=== PATIENT | male | born 1935 | race Caucasian/White ===

== ENCOUNTER 2017-12-11 12:21 | Inpatient (IN) | payer OTHER ==
[~2017-12-11 12:21] MED LIST: DOPamine-D5W 1.6 MG/ML 250 ML; HEPARIN 5,000 UNIT/0.5 ML VIAL
[2017-12-11 12:34] LABS: ADD MAN DIFF? NO
[2017-12-11 12:40] LABS: ABNORMAL IP MESSAGE 1; BASOPHIL # 0.1 10^3/ul (0.0-0.1); BASOPHILS % 0.3 % (0.0-2.0); HEMATOCRIT 45.5 % (42.0-52.0); HEMOGLOBIN 15.5 g/dl (14.0-18.0); LYMPHOCYTES # 0.6 10^3/ul (0.8-2.9); LYMPHOCYTES % 2.4 % (15.0-51.0); MEAN CORPUSCULAR HEMOGLOBIN 33.3 pg (29.0-33.0); MEAN CORPUSCULAR HGB CONC 34.1 g/dl (32.0-37.0); MEAN CORPUSCULAR VOLUME 97.8 fl (82.0-101.0); MONOCYTE # 2.1 10^3/ul (0.3-0.9); NEUTROPHIL # 20.9 10^3/ul (1.6-7.5); NEUTROPHILS % 87.5 % (39.0-77.0); PLATELET COUNT 125 10^3/UL (140-415); POSITIVE DIFF @See below; RED BLOOD COUNT 4.65 10^6/ul (4.70-6.10); RED CELL DISTRIBUTION WIDTH 12.5 % (11.5-14.5)
[2017-12-11 12:40] LABS: WHITE BLOOD COUNT 23.8 10^3/ul (4.8-10.8)
[2017-12-11] MEDS ORDERED: HEPARIN 1000 UNITS/ML 10 ML INJ (12:50)
[2017-12-11] MEDS ORDERED: NITROGLYCERIN (IC) 100 MCG/ML INJ ×2 (12:50→13:38)
[2017-12-11] MEDS ORDERED: IOHEXOL 350MG/ML 50 ML BTL (12:50)
[2017-12-11] MEDS ORDERED: VERAPAMIL 5 MG INJ (12:50)
[2017-12-11] MEDS ORDERED: MIDAZOLAM 1 MG/ML 2 ML INJ (12:50)
[2017-12-11] MEDS ORDERED: IODIXANOL LOCM 100 ML BTL ×3 (12:50→14:08)
[2017-12-11] MEDS ORDERED: FENTAnyl 50 MCG/ML VIAL (12:50)
[2017-12-11 13:12] LABS: ANION GAP 21 (8-16); BLOOD UREA NITROGEN 12 mg/dl (7-20); CALCIUM 8.8 mg/dl (8.4-10.2); CARBON DIOXIDE 19 mmol/L (21-31); CHLORIDE 108 mmol/L (97-110); GLUCOSE 173 mg/dl (70-220); SODIUM 144 mmol/L (135-144)
[2017-12-11 13:14] LABS: B-TYPE NATRIURETIC PEPTIDE 798 PG/ML (0-450)
[2017-12-11] MEDS ORDERED: TICAGRELOR 90 MG TABLET (13:17)
[2017-12-11] MEDS ORDERED: niCARdipine 25 MG INJ (13:24)
[2017-12-11] MEDS ORDERED: FUROSEMIDE 40 MG INJ ×2 (13:24→13:50)
[2017-12-11] MEDS ORDERED: ACETAMINOPHEN 325 MG TAB PO (15:00)
[2017-12-11] MEDS ORDERED: ALBUTEROL 0.083% (NEB) 2.5 MG/3 ML AMP NEB (15:00)
[2017-12-11] MEDS ORDERED: MAGNESIUM HYDROXIDE 30ML CUP PO (15:00)
[2017-12-11] MEDS ORDERED: ONDANSETRON 4 MG INJ IV (15:00)
[2017-12-11] MEDS ORDERED: ALBUTEROL/IPRATROPIUM (NEB) 3 ML AMP HHN (15:00)
[2017-12-11] MEDS ORDERED: DOCUSATE SODIUM 100 MG CAP PO (15:00)
[2017-12-11] MEDS ORDERED: ALBUTEROL/IPRATROPIUM (NEB) 3 ML AMP (15:04)
[2017-12-11] MEDS ORDERED: DOPamine-D5W 1.6 MG/ML 250 ML IV (16:00)
[2017-12-11] MEDS: FUROSEMIDE 250 MG in DEXTROSE 5% 225 ML IV (16:25)
[2017-12-11] MEDS: POTASSIUM CHLORIDE (SR) 20 MEQ TAB PO (16:25)
[2017-12-11] MEDS: ALBUTEROL/IPRATROPIUM (NEB) 3 ML AMP HHN (16:25)
[2017-12-11] MEDS: FUROSEMIDE 40 MG INJ IV (16:25)
[2017-12-11 17:14] LABS: CHOL/HDL RATIO 1.8 RATIO; LDL CHOLESTEROL,CALCULATED 45 mg/dl
[2017-12-11 17:15] LABS: HDL CHOLESTEROL 74 mg/dl (31-75); TRIGLYCERIDES 99 mg/dl (0-149)
[2017-12-11 17:15] LABS: CHOLESTEROL 139 mg/dl (100-200)
[2017-12-11] MEDS: ATORVASTATIN 80 MG TAB PO (20:47)
[2017-12-11] MEDS: TICAGRELOR 90 MG TABLET PO (20:49)
[2017-12-11 22:25] LABS: CK INDEX 6.7; CREATINE KINASE 9619 IU/L (23-200)
[2017-12-12 03:06] LABS: CREATINE KINASE 5894 IU/L (23-200)
[2017-12-12 03:08] LABS: CK INDEX 8.5
[2017-12-12 05:20] LABS: ADD MAN DIFF? NO
[2017-12-12] MEDS: FUROSEMIDE 250 MG in DEXTROSE 5% 225 ML IV (05:25)
[2017-12-12] MEDS: PANTOPRAZOLE (EC) 40 MG TAB PO (05:25)
[2017-12-12 05:30] LABS: ABNORMAL IP MESSAGE 1; BASOPHIL # 0.1 10^3/ul (0.0-0.1); BASOPHILS % 0.2 % (0.0-2.0); HEMATOCRIT 47.2 % (42.0-52.0); HEMOGLOBIN 16.6 g/dl (14.0-18.0); LYMPHOCYTES # 1.2 10^3/ul (0.8-2.9); LYMPHOCYTES % 5.1 % (15.0-51.0); MEAN CORPUSCULAR HEMOGLOBIN 33.1 pg (29.0-33.0); MEAN CORPUSCULAR HGB CONC 35.2 g/dl (32.0-37.0); MEAN PLATELET VOLUME 11.6 fl (7.4-10.4); MONOCYTE # 2.2 10^3/ul (0.3-0.9); MONOCYTES % 9.2 % (0.0-11.0); NEUTROPHIL # 20.2 10^3/ul (1.6-7.5); NEUTROPHILS % 83.7 % (39.0-77.0); PLATELET COUNT 113 10^3/UL (140-415); POSITIVE DIFF @See below; RED BLOOD COUNT 5.02 10^6/ul (4.70-6.10); RED CELL DISTRIBUTION WIDTH 12.8 % (11.5-14.5)
[2017-12-12 05:30] LABS: WHITE BLOOD COUNT 24.1 10^3/ul (4.8-10.8)
[2017-12-12 05:51] LABS: ANION GAP 14 (8-16); BLOOD UREA NITROGEN 16 mg/dl (7-20); CALCIUM 8.5 mg/dl (8.4-10.2); CARBON DIOXIDE 25 mmol/L (21-31); CHLORIDE 107 mmol/L (97-110); CREATININE 0.96 mg/dl (0.61-1.24); GLUCOSE 136 mg/dl (70-220); POTASSIUM 4.1 mmol/L (3.5-5.1); SODIUM 142 mmol/L (135-144)
[2017-12-12 08:39] LABS: MAGNESIUM 1.9 mg/dl (1.7-2.5)
[2017-12-12] MEDS: TICAGRELOR 90 MG TABLET PO (08:40)
[2017-12-12] MEDS: ASPIRIN (EC) 81 MG TAB PO (08:40)
[2017-12-12] MEDS: MAGNESIUM SULFATE 2 GM/50 ML 50 ML IVPB (11:27)
== END 2017-12-12 15:40 | disposition short-term general hospital (02) | DRG 246 ==
LOC: E/R 12:21 → CCL 12:39 → SDS 12:39 → ICU 14:30 → CCL 20:12 → REC 14:55 → ICU 14:55
PROC: 027034Z Dilation of Coronary Artery, One Artery with Drug-eluting Intraluminal Device, Percutaneous Approach (ICD-10-PCS; principal; 2017-12-11 12:41)
DX: I21.09 ST elevation (STEMI) myocardial infarction involving other coronary artery of anterior wall (principal); I50.43 Acute on chronic combined systolic (congestive) and diastolic (congestive) heart failure; J96.01 Acute respiratory failure with hypoxia; I71.4 Abdominal aortic aneurysm, without rupture
CPT/HCPCS: 36415; 71045; 71275; 80048; 80061; 82550; 82553; 83735; 83880; 84484; 85025; 93005; 93306; 93458; 94664; 96365; 96366; 96375; 99291-25